=== PATIENT | female | born 2000 | race Caucasian/White ===

== ENCOUNTER → 2021-09-04 | Outpatient (CLI) | payer BC ==
--- NOTE | 2021-09-05 07:35 | US ---
EXAMINATION TYPE: US kidneys/renal and bladder DATE OF EXAM: 09/04/2021 COMPARISON: NONE CLINICAL HISTORY: R33.9 Urine retention. EXAM MEASUREMENTS: Right Kidney: 10.1 x 5.5 x 4.9 cm Left Kidney: 10.6 x 4.2 x 5.2 cm Post Void Residual Volume: 0 mL Right Kidney: partially obscured by bowel gas, prominent renal pelvis vs mild hydro Left Kidney: partially obscured by bowel gas, prominent renal pelvis Bladder: wnl Bilateral Jets seen: yes Normal Post Void Residual: yes Incidental finding of RLQ cyst, possibly ovarian measuring 20.0 x 7.6 x 18.1cm Suboptimal study with areas of shadowing from overlying bowel gas on all images saved. Mild bilateral pyelocaliectasis. No concerning masses seen on images saved. Distended bladder without intraluminal mass or wall thickening. Bilateral distal ureter jets seen. Large thin-walled cystic lesion right pel vis partially imaged. Bladder completely emptied on voiding. IMPRESSION: No abnormal post void residual. Mild bilateral hydronephrosis. There is near 20.0 cm thin -walled cyst or cystic lesion right pelvis favored ovarian in etiology. Advise MRI and/or CT follow-u p to further evaluate and characterize. 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 Mass effect due to size is likely present.
== END | disposition home or self-care (01) ==
LOC: RADUSWWP 16:04
PROVIDERS: ATTEND Urology
DX: N13.30 Unspecified hydronephrosis (principal); R19.09 Other intra-abdominal and pelvic swelling, mass and lump
CPT/HCPCS: 76770

== ENCOUNTER → 2021-09-07 | Outpatient (CLI) | payer BC ==
--- NOTE | 2021-09-07 19:03 | MR ---
EXAMINATION TYPE: MR lspine/sacrum wo/w con DATE OF EXAM: 09/07/2021 COMPARISON: None HISTORY: Urinary retention. TECHNIQUE: Multiplanar, multisequence images of the lumbar spine and sacrum is performed without and with IV con trast, utilizing 6.5 mL intravenous Gadavist FINDINGS: Sagittal images of the lumbar spine show vertebral body heights and alignment to appear sat isfactory. The intervertebral discs demonstrate normal heights and hydration. The conus medullaris i s normal in position and signal. The bone marrow signal intensity is within normal limits. Axial images show no focal disc disease, or facet degenerative change at any lumbar level. There is no spinal canal stenosis, neural foraminal narrowing, or evidence of nerve root compromise. Septate uterus morphology is present. There is a large cystic structure lesion which is partially vis ualized and felt to be coming from the left ovary measuring at least 186 x 82 mm transverse/AP. The r ight ovary is also visualized and medialized near the left ovary posterior to the large cystic lesion . IMPRESSION: 1. No evidence of spinal canal stenosis or herniation. 2. Large abdominal cystic lesion is partially visualized and is felt to be coming from the left ovary . This is concerning for ovarian cystic neoplasm. Further workup is recommended.
== END | disposition home or self-care (01) ==
LOC: RADMRIMAIN 13:24
PROVIDERS: ATTEND Urology
DX: N83.8 Other noninflammatory disorders of ovary, fallopian tube and broad ligament (principal)
CPT/HCPCS: 72158; 72197; A9585

== ENCOUNTER → 2021-09-26 | Outpatient (CLI) | payer BC | END | disposition home or self-care (01) | LOC: LABWHC1 14:18 | PROVIDERS: ATTEND Physician Assistant Medical | DX: D39.10 Neoplasm of uncertain behavior of unspecified ovary (principal) | CPT/HCPCS: 36415 ==